=== PATIENT | male | born 1965 | race Hispanic/Latino ===

== ENCOUNTER 2017-08-19 12:43 | Day surgery (SDC) | payer BC ==
[2017-08-19 13:47] LABS: PLATELET COUNT 281 K/uL (142-355)
[2017-08-19 13:56] LABS: POTASSIUM 3.7 mmol/L (3.6-5.2); SODIUM 138 mmol/L (136-145)
== END 2017-08-19 17:05 | disposition home or self-care (01) ==
LOC: OR 12:43
PROVIDERS: Internal Medicine Gastroenterology
PROC: 0DJD8ZZ Inspection of Lower Intestinal Tract, Via Natural or Artificial Opening Endoscopic (ICD-10-PCS; principal; 2017-08-19)
DX: K57.30 Diverticulosis of large intestine without perforation or abscess without bleeding (principal); K64.8 Other hemorrhoids; Z12.11 Encounter for screening for malignant neoplasm of colon
CPT/HCPCS: 80053; 85027; J2001; J2250; J2704; J3010

== ENCOUNTER 2018-10-06 11:17 | Outpatient (CLI) | payer BC | END 2018-10-06 19:46 | disposition home or self-care (01) | LOC: RAD 11:17 | DX: S89.90XA Unspecified injury of unspecified lower leg, initial encounter (principal) ==

== ENCOUNTER 2022-01-02 16:17 | Outpatient (CLI) | payer BC | END 2022-01-02 19:26 | disposition home or self-care (01) | LOC: CT 16:17 | PROVIDERS: ATTEND Physician Assistant | DX: R29.898 Other symptoms and signs involving the musculoskeletal system (principal) ==

== ENCOUNTER 2022-01-14 15:27 | Outpatient (CLI) | payer BC | END 2022-01-14 18:55 | disposition home or self-care (01) | LOC: MRI 15:27 | PROVIDERS: ATTEND Physician Assistant | DX: R47.81 Slurred speech (principal) ==

== ENCOUNTER 2022-01-17 17:18 | Emergency (ER) | payer BC ==
[~2022-01-17] VITALS: Ht 172.7 cm; Wt 103.4 kg
[2022-01-17 17:49] LABS: PLATELET COUNT 268 K/uL (142-355)
[2022-01-17 17:57] LABS: POTASSIUM 3.9 mmol/L (3.6-5.2)
[2022-01-17 18:08] LABS: PARTIAL THROMBOPLASTIN TIME 28.5 SECONDS (24.5-33.6)
[2022-01-17 19:26] VITALS: BP 141/91; TEMP 98.4
== END 2022-01-17 19:29 | disposition home or self-care (01) ==
LOC: ED 17:18
PROVIDERS: Hospitalist
DX: J40 Bronchitis, not specified as acute or chronic (principal)
CPT/HCPCS: 36415; 80053; 80320; 82550; 83880; 84484; 85027; 85379; 85610; 85730; 93005; 99283

== ENCOUNTER 2022-03-24 18:00 | Outpatient (CLI) | payer BC | END 2022-03-24 19:38 | disposition home or self-care (01) | LOC: CT 18:00 | PROVIDERS: ATTEND Psychiatry & Neurology Neurology | DX: R53.1 Weakness (principal); R47.81 Slurred speech | CPT/HCPCS: 36415; 82565; 84520 ==

== ENCOUNTER 2022-03-26 14:05 | Outpatient (CLI) | payer BC | END 2022-03-26 20:03 | disposition home or self-care (01) | LOC: MRI 14:05 | PROVIDERS: ATTEND Psychiatry & Neurology Neurology | DX: R53.1 Weakness (principal); R47.81 Slurred speech; Z79.899 Other long term (current) drug therapy ==

== ENCOUNTER 2022-04-24 17:57 | Outpatient (CLI) | payer BC | END 2022-04-24 20:55 | disposition home or self-care (01) | LOC: RAD 17:57 | PROVIDERS: ATTEND Nurse Practitioner Family | DX: M06.4 Inflammatory polyarthropathy (principal); R76.0 Raised antibody titer; Z68.35 Body mass index [BMI] 35.0-35.9, adult ==